=== PATIENT | male | born 2000 | race African-American/Black ===

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

== ENCOUNTER 2022-11-17 14:30 | Emergency (ER) | payer MEDICAID ==
[~2022-11-17] VITALS: Ht 170.2 cm; Wt 60.0 kg
[2022-11-17] MEDS ORDERED: methylPREDNISolone SOD SUCC 40 MG/ML VL IM ONE (16:30)
[2022-11-17] MEDS ORDERED: ALBUTEROL SULF 2.5 MG/0.5ML(0.5%) NEB SOLN NEB ONE (16:30)
[2022-11-17] MEDS ORDERED: IPRATROPIUM BROM 0.5 MG/2.5ML INH SOL NEB ONE (16:30)
[2022-11-17] MEDS ORDERED: ALBUAER3 IN (16:33)
[2022-11-17] MEDS ORDERED: PRED20TA2 PO (16:33)
[2022-11-17] MEDS ORDERED: AZITTAB PO (16:33)
[2022-11-17 16:42] VITALS: BP 135/85; PULSE 86; RESP 18; TEMP 97.5; O2SAT 97
== END 2022-11-17 16:48 | disposition home or self-care (01) ==
LOC: ER 14:30
DX: J45.909 Unspecified asthma, uncomplicated (principal)
CPT/HCPCS: 94640; 96372; 99283; J2920; J7644